=== PATIENT | female | born 1960 | race Caucasian/White ===

== ENCOUNTER 2025-02-18 09:05 | Outpatient (AMB) | payer OTHER, SELFPAY ==
--- NOTE | 2025-02-18 09:06 | MHC.OFFVIS ---
Intake Visit Reasons: 4 Months Allergies codeine Allergy (Unknown, Verified 02/18/25 09:08) Unknown latex Allergy (Unknown, Verified 02/18/25 09:08) Unknown sulfur dioxide Allergy (Unknown, Verified 02/18/25 09:08) Unknown Medication List - Last Reconciled 02/18/25 by Sherrell Alfredo CNP atorvastatin 10 mg PO BEDTIME beclomethasone dipropionate 80 mcg/actuation (Qvar RediHaler) 2 inhalations inhalation BID ipratropium bromide intranasal sertraline 25 mg PO DAILY verapamil 40 mg PO BID HPI Comments Details: 64-year-old woman with migraine type headaches and anxiety. She was having more migraines and auras lately. She was having visual auras without headache few times a week. She was getting bad migraine at least 3x/month. She was sometimes getting some parasethesia to scalp before headache happened. Headaches were more severe and lasting longer. She was using Benadryl and ibuprofen as needed which helped her to sleep as sleep was the only thing that helped to take away headache. She had to miss 1.5 days of work because of migraine recently. She was under more stress related to health and care of her mother with dementia and associated behaviors, which may be triggering headaches. She increased sertraline to 37.5mg which seems to be helping some. She did not think 25mg was sufficient and she felt more anxious and jittery with 50mg dose. [facility] Family History (Updated 02/18/25 @ 09:13 by Sherrell Alfredo CNP) Daughter Headache Mother Dementia Review of Systems Const Denies chills, Denies daytime sleepiness, Denies difficulty sleeping, Denies fatigue, Denies fever(s), Denies frequent falls, Reports headache(s), Denies increased appetite, Denies poor appetite, Denies snoring, Denies weakness, Denies weight gain and Denies weight loss Eyes Denies loss of vision ENT Denies vertigo, Denies dizziness and Reports headache(s) Card Denies chest pain at rest, Denies chest pain with activity, Denies syncope, Denies leg edema and Denies palpitations Resp Denies snoring GI Denies constipation, Denies heartburn, Denies diarrhea and Denies nausea Denies urinary frequency, Denies urinary incontinence and Denies urinary urgency Musc Denies abnormal gait, Denies numbness and Denies tingling Skin/Breast Denies dry skin and Denies rash Neuro Denies abnormal gait, Denies vertigo, Denies dizziness, Denies syncope, Denies frequent falls, Reports headache(s), Denies lack of coordination, Denies loss of vision, Denies memory loss, Denies numbness, Denies restless legs, Denies seizure-like activity, Denies tingling, Denies paresthesias, Denies tremor(s) and Denies weakness Psych Reports anxiety, Denies depression, Denies auditory hallucinations, Denies memory loss, Denies visual hallucinations and Denies suicidal ideation Endo Denies fatigue and Denies palpitations Physical Exam Const Other: General Appearance:? normal, in no acute distress. Skin:? no rashes, no significant birthmarks. Heart:? S1, S2 normal, no murmurs. Lungs:? clear anteriorly and posteriorly. Extremities:? no edema. Psych:? alert, oriented, cognitive function intact, cooperative with exam. Neuro Other: Mental Status:?Normal attention, orientation, memory and affect.? Cranial Nerves:?Pupils are equal, round and reactive to light. External occular muscles are intact. Visual cota are full. Face is symmetrical. Facial sensations are normal. Tongue is midline. Palate elevates symmetrically. Shoulder shrugging is normal. Hearing to bedside conversation is normal. Sensory Exam:?....? Coordination:?No ataxia,?no titubation.? Gait Exam: Within normal limits. Cerebellar Signs:?[id number] is okay. Extrapyramidal System:?No tremor, rigidity with normal facial expressions.? Pronator Drift:?Not present.? Involuntary Movements:?No tremors seen.? Speech:?Normal.? 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 Start rizatriptan 10mg 1 tablet as needed for migraine, use/side effects reviewed. (2) Migraine equivalent: Code(s): G43.109 - Migraine with aura, not intractable, without status migrainosus Category: Medical (3) Anxiety: Code(s): F41.9 - Anxiety disorder, unspecified Category: Medical Plan: She was taking sertraline 25mg 1.5 tablets without medication side effects. She tried sertraline 50mg in the past, but had side effects of increased anxiety and feeling too jittery. Will continue sertraline 37.5mg daily. Increase sertraline 25mg 1.5 tablet daily. (4) History of cerebral infarction: Code(s): Z86.73 - Personal history of transient ischemic attack (TIA), and cerebral infarction without residual deficits Category: Medical Plan Meds tried for migraine: Topiramate (worked but she did not want to take it), sumatriptan, butalbital Medications: New rizatriptan take 1 tab at onset of headache; if no relief may repeat 1 tab after at least 4 hrs; max = 2 tabs/24 hr PO 10 tabs 2RF 30 days sertraline 37.5 mg (1.5 x 25 mg) PO DAILY 135 tabs 1RF 90 days verapamil ER 120 mg PO DAILY 90 tabs 1RF 90 days Coding Level of Care Code Est Pt Level 4 (85132) Diagnoses Basilar migraine G43.109 Migraine equivalent G43.109 Anxiety F41.9 History of cerebral infarction Z86.73
--- OUTSIDE RECORDS SUMMARY | 2025-02-18 09:42 | XMS_ITS | Clinical Summary ---
Author Organization [facility] Address [address] [place] [address] Phone Care Team Providers Care Physician Extender Name Role Phone Erika Bustillos MD Primary Care Provider Allergies Active Allergy Reactions Criticality Noted Date Comments Caffeine 06/16/2023 Ringing in ears, can't top talking Codeine Other,Palpitations 02/22/2014 hyperactivity Latex Rash,Photosensitivity 03/09/2021 Oxycodone Other 09/07/2023 Chest tightness Sulfa (Sulfonamide Antibiotics) Rash 02/22/2014 Medications aspirin 81 mg EC tablet Take 81 mg by mouth daily. Active calcium carbonate-vitami n D3 600 mg-10 mcg (400 unit) capsule Take by mouth. Activ e coenzyme Q-10 100 mg capsule Take by mouth. Active KRILL OIL ORAL Activ e magnesium 250 mg tablet Take by mouth. Activ e multivitamin (MULTIPLE VITAMINS ORAL) Take 1 Tab by mouth daily. Active sertraline (ZOLOFT) 25 mg tablet Take 1 Tablet by mouth daily. - Oral Active verapamiL (CALAN) 40 mg tablet Take 1 Tablet by mouth 2 Times Daily. - Oral Active ipratropium (ATROVENT) 21 mcg (0.03 %) nasal spray USE 2 SPRAYS IN EACH NOSTRIL 3 TIMES A DAY 4 Active albuterol-budeso nide (AIRSUPRA) 90-80 mcg/actuation inhaler 4 Active beclomethasone dipropionate (Qvar RediHaler) 80 mcg/actuation HFA aerosol breath activated inhaler Inhale 2 puffs by mouth 2 (two) times a day. 1 each 6 4 025 Active Additional Information Patient not taking.Reported on 12/21/2024 beclomethasone dipropionate (Qvar RediHaler) 80 mcg/actuation HFA aerosol breath activated inhaler Inhale 2 puffs by mouth 2 (two) times a day. 3 each 3 5 026 Active Additional Information Patient not taking.Reported on 12/21/2024 sodium,potassium ,mag sulfates (Suprep Bowel Prep Kit) 17.5-3.13-1.6 gram recon soln bowel prep kit oral solution Take 177ML by mouth for 2 doses. SEE INSTRUCTIONS PROVIDED BY OFFICE. 1 kit 5 Active Additional Information Patient not taking.Reported on 12/21/2024 omega 7-hbw-rkc-fish oil (Fish OiL) 1,000 (120-180) mg capsule Active atorvastatin (LIPITOR) 10 mg tablet TAKE 1 TABLET BY MOUTH EVERYDAY AT BEDTIME 90 tablet 1 5 Active Active Problems Problem Noted Date Diagnosed Date CVA (cerebral vascular accident) ([facility] V24, C [place]/[facility] V28) 08/31/2024 Laryngospasm 08/31/2024 Anxiety 08/21/2024 H/O congenital dislocation of hip 06/21/2024 Heterogeneously dense tissue of both breasts on mammography 06/15/2024 Mass of right breast 06/15/2024 Osteoarthritis of hip 06/15/2024 Osteopenia of multiple sites 06/15/2024 Overweight for height 06/15/2024 Chronic hoarseness 04/04/2024 Chronic rhinitis 04/04/2024 Gastroesophageal reflux disease without esophagi tis 04/04/2024 Nasal congestion 04/04/2024 Hemoptysis 03/09/2024 Bilateral swelling of feet 03/01/2024 Chronic cough 03/01/2024 Obesity (BMI 30-39.9) 03/01/2024 Pleural scarring 03/01/2024 Overview (06/21/2024): Last Assessment & Plan: Had a long discussion with her and her about the findings on her CT scan which really just showed some bilateral apical pleural scarring which is as explained to her quite common. I also explained to her that there is no findings on the CT scan that would explain her symptoms of cough, weakness, and shortness of breath. We also discussed the possibility of there being some inhaled irritant that she thinks may be from her work. I did also discuss with her possibility that reflux can cause symptoms like that but her symptoms seem to correlate with her time at work as the hoarseness gets better after a few hours after leaving work. She also has had no symptoms when she was on vacation. I do not think there is anything I can add in terms of diagnosis except that she could try taking [id number] Pepcid on a daily basis and see if that improves her symptoms. She also tells me that she is seeing gastroenterology in 2 weeks. All questions were answered and she can follow-up with me on an as- needed basis moving forward. Weakness 03/01/2024 Migraine headache 02/21/2024 Known medical problems 02/21/2024 TIA (transient ischemic attack) 02/21/2024 Heartburn 12/25/2023 Overview (06/21/2024): Burning at top of stomach Chronic maxillary sinusitis 02/08/2023 Overview (12/21/2024): Chronic maxillary sinusitis; Note: Date Diagnosed: 02/08/2023 2:47 PM (J32.0) Migraine without aura, not refractory 02/08/2023 Overview (12/21/2024): Migraine without aura, not intractable, without status migrainosus; Note: Date Diagnosed: 02/08/2023 2:47 PM (G43.009) Deviated nasal septum 07/08/2020 Overview (12/21/2024): Deflection or deviation of septum (nasal) (acquired); Note: Date Diagnosed: 07/08/2020 1:25 PM (J34.2) Epistaxis 07/08/2020 Overview (12/21/2024): Epistaxis; Note: Date Diagnosed: 07/08/2020 1:25 PM (R04.0) Hyperlipidemia 01/27/2016 Overview (02/21/2024): Total cholesterol 204, LDL cholesterol 119, 09/03/2015 Arthralgia of temporomandibular joint 05/28/2015 Overview (12/21/2024): Arthralgia of temporomandibular joint; Note: Date Diagnosed: 05/28/2015 9:05 AM (M26.62) Impacted cerumen of left ear 05/28/2015 Overview (12/21/2024): Impacted cerumen, left ear; Note: Date Diagnosed: 05/28/2015 9:05 AM (H61.22) Vitamin D deficiency 05/31/2014 Hematuria 05/22/2013 Resolved Problems Problem Noted Date Diagnosed Date Resolved Date Palpitations 12/30/2022 12/21/2024 Overview (02/21/2024): December 2022: Normal Holter monitor Encounters Date Type Department Care Team Description 12/21/2024 2:00 PM EDT Office Visit Pulmonology - [place] [address] [facility] [address] [place] [address] Landy Sinclair MD Cough variant asthma (Primary Dx); Chronic bronchitis, unspecified chronic bronchitis type ([facility] V24, [facility] V28) 12/11/2024 Telephone [facility] [address] [place] [address] Erika Bustillos MD from Last 3 Months Immunizations Immunization Administration Dates Next Due Influenza Quadrivalent, 0.5m l, preservative free (Fluarix; FluLaval; Fluzone) ages 6mo and older (Afluria) 3yo and older 04/14/2018 Influenza Whole 02/27/2015 Influenza trivalent, 0.5mL, preservative free (Fluarix; FluLaval; Fluzone) ages 6mo and older (Afluria) 3 years and older 03/09/2017,02/12/2016,02/25/2015 Influenza trivalent, with pr eservative (Fluzone; Afluria) 6mo and older 04/14/2018 [employer] SARS-CoV-2 COVID-19, mRNA, LNP-S, preservative free 09/13/2020,08/23/2020 Tdap Tetanus diptheria acell ular pertussis (Boostrix; Adacel) 7yo and older 02/04/2023 Surgical History Surgery Date Site/Laterality Comments TUBAL LIGATION PROCEDURE: HISTORICAL TUBAL LIGATION COLONOSCOPY 05/23/2014 PROCEDURE: HISTORICAL COLONOSCOPY; COMMENT: normal OTHER SURGICAL HISTORY Bilateral PROCEDURE: [place] STAB PHLEBT VARICOSE VEINS 1 XTR 10-20 STAB INCS HIP ARTHROPLASTY Left PROCEDURE: HISTORICAL HIP REPLACEMENT KNEE SURGERY Right PROCEDURE: HISTORICAL KNEE SURGERY; COMMENT: torn meniscus Medical History Medical History Date Comments Migraines DX:Migraines H/O congenital dislocation of hip DX:H/O congenital dislocation of hip Varicose veins DX:Varicose vein s TIA (transient ischemic attack) DX:TIA (transient ischemic attack) GERD (gastroesophageal reflux disease) Family History Medical History Relation Name Comments Bladder Cancer Brother Prostate cancer Brother Heart attack Father of [place] whil e driving in 50s Dementia Mother Other: Other Mother Osteoporosis Breast cancer Sister 52 Relation Name Status Comments Brother Alive prostate cancer Father (Age early 50's) [place] , CAD, CABG Mother Alive multiple GI pro blems Sister 52 Alive Social History Tobacco Use Types Packs/Day Years Used Date Smoking Tobacco: Never Smokeless Tobacco: Never Tobacco Cessation:Counseling Given: Not Answered Alcohol Use Standard Drinks/Week Comments Yes 0 (1 standard drink = 0.6 oz pur e alcohol) Housing Instability Answer Date Recorde d Are you worried that in the next 2 months you may not have stable housing? No 08/17/2024 Food Access & Nutrition Answer Date Rec orded Do you have access to a vari ety of food including fruits and vegetables? Yes 08/17/2024 Access to Healthcare Answer Date Record ed Within the last 3 months, ho w many times did you visit the emergency department for your medical care? 0 08/17/2024 Health Literacy Answer Date Recorded How often do you need to hav e someone help you when you read instructions, pamphlets, or other written material from your doctor or pharmacy? Never 08/17/2024 Caregiver: How often do you need to have someone help you when you read instructions, pamphlets, or other written material from your doctor or pharmacy? Not on file 08/17/2024 Financial Risk Answer Date Recorded How hard is it for you to pa y for the very basics like food, housing, medical care, and air conditioning / heating? Not very hard 08/17/2024 Transportation Answer Date Recorded Has the lack of transportati on kept you from meetings, work, or from getting things needed for daily living? No Has the lack of transportati on kept you from medical appointments or from getting medications? No 08/17/2024 Social Isolation Answer Date Recorded How often do you feel lonely or isolated from th ose around you? Never 08/17/2024 Food Risk Answer Date Recorded Within the past 12 months we worried whether our food would run out before we got money to buy more. Never true 08/17/2024 Within the past 12 months th e food we bought just didn't last and we didn't have money to get more. Never true 08/17/2024 Dependent Care Answer Date Recorded Do you need help finding or paying for care for your loved ones. For example, exceptional children teacher or elderly care for an older adult? Yes 08/17/2024 Education Answer Date Recorded Do you think completing more education or training, like finishing a GED, going to college, or learning a trade, would be helpful for you? N/A 08/17/2024 Employment and Income Answer Date Recor ded During the last four weeks, have you been actively looking for work? No 08/17/2024 Living Situation Answer Date Recorded What is your living situation? Unrecognized valu e 08/17/2024 Interpersonal Safety Answer Date Record ed Physical Abuse Unrecognized value 08/31/2024 Verbal Abuse Unrecognized value 08/31/2024 Comments No Sex and Gender Information Value Date Recorded Sex Assigned at Female 03/20/2024 12:40 PM EDT Legal Sex Female 9:04 AM EST Gender Identity Female 03/20/2024 12:40 PM EDT Sexual Orientation Straight 03/20/2024 12 :40 PM EDT Obstetrics History Para Term AB IAB SAB Ectopic Multiple Livin g Live Births 2 2 2 2 Date Outcome GA Total Labor Labor/2nd/3rd Weight Sex Type Anes PTL Juana A1 A5 Name Clin Term Term Last Filed Vital Signs Vital Sign Reading Time Taken Comments Blood Pressure 119/66 12/21/2024 2:01 PM EDT Pulse 79 12/21/2024 2:01 PM EDT Temperature 36.7 C (98 F) 12/21/2024 2:01 PM EDT Respiratory Rate 20 12/21/2024 2:01 PM EDT Oxygen Saturation 98% 12/21/2024 2:01 PM EDT Inhaled Oxygen Concentration - - Weight 65.1 kg (143 lb 9.6 oz) 12/21/2024 2:01 P M EDT Height 148.6 cm (4' 10.5 ) 12/21/2024 2:01 PM ED T Body Mass Index 29.5 12/21/2024 2:01 PM EDT Plan of Treatment Upcoming Encounters Date Type Department Care Team (Late st Contact Info) Description 03/21/2025 7:00 AM EDT Ancillary Procedure [facility] - [facility] [address] [facility] [address] [place] [address] 04/24/2025 7:40 AM EST Appointment Radiology Department - [address] [phone] 04/24/2025 1:30 PM EST Office Visit Vascular Surgery - [place] [address] [facility] [address] [place] [address] Malinda Khan PA [address] [place] [phone] 08/23/2025 8:00 AM EDT Office Visit Adult Medicine [address] [address] Eriak Bustillos MD [address] [place] [phone] 12/17/2025 10:15 AM EDT Ancillary Procedure Pulmonology - [place] [address] [facility] [address] [place] [address] 12/17/2025 11:00 AM EDT Office Visit Pulmonology - [place] [address] [facility] [address] [place] [phone] Landy Sinclair MD [address] [facility] [address] [place] [address] Health Maintenance Due Date Last Done Comments COVID-19 Vaccine (3 - 2024- season) 2025 09/13/2020, 08/23/2020 Influenza Vaccine (#1) 2025 8, 04/14/2018, 03/09/2017, Additional history exists HIV Screening 05/23/2025 Postponed from 05/01/2022 (Patient Refused) Pneumococcal Vaccine: 50+ Years (1 of 2 - PCV) 05/23/2025 Postponed from 1979 (Patient Refused) RSV Immunization Adult Patients (1 - Risk 60-74 years 1-dose series) 05/23/2025 Postponed from 2020 (Patient Refused) Zoster Vaccines (1 of 2) 05/23/2025 Pos tponed from 2010 (Patient Refused) Social Influencers of Health Screening 08/17/2025 08/17/2024 Breast Cancer Screening 04/23/2026 04/23/20, 04/11/2024, 04/06/2023, Additional history exists Colorectal Cancer Screening: Colonoscopy 09/01/2027 08/31/2024 Cervical Cancer Screening: HPV 06/15/2029 06/15/2024 Cholesterol Screening (Lipid Panel) 08/22/2029 08/22/2024, 08/16/2023 DTaP,Tdap,and Td Vaccines (2 - Td or Tdap) 02/04/2033 02/04/2023 Hepatitis C Screening Completed 03/14/2014 Depression Screening Completed 08/17/2024 HIB Vaccines Aged Out No longer eligi ble based on patient's age to complete this topic HPV Vaccines Aged Out No longer eligi ble based on patient's age to complete this topic Hepatitis A Vaccines Aged Out No long er eligible based on patient's age to complete this topic Hepatitis B Vaccines Aged Out No long er eligible based on patient's age to complete this topic IPV Vaccines Aged Out No longer eligi ble based on patient's age to complete this topic MMR Vaccines Aged Out No longer eligi ble based on patient's age to complete this topic Meningococcal ACWY Vaccine Aged Out N o longer eligible based on patient's age to complete this topic Meningococcal B Vaccine Aged Out No l onger eligible based on patient's age to complete this topic RSV Immunization Patients Under 20 months Aged Out No longer eligible based on patient's age to complete this topic Varicella Vaccines Aged Out No longer eligible based on patient's age to complete this topic Procedures Procedure Name Priority Date/Time Associated Diagnosis Comments COLONOSCOPY Routine 08/31/2024 8:14 AM EDT Esophageal dysphagia Screening for colorectal cancer LIPID PANEL WITH REFLEX TO DIRECT LDL Routine 08/22/2024 10:43 AM EDT Annual physical exam MG MAMMO DIGITAL DIAGNOSTIC W PAULETTE RIGHT Routine 04/23/2024 2:32 PM EST Abnormal mammogram HM HEPATITIS C SCREENING Routine 03/14/2014 from Last 3 Months or Most Recently Relevant to Health Maintenance Results * COLONOSCOPY Anesthesia - MAC; [facility] (08/31/2024 8:14 AM EDT) Anatomical Region Laterality Modality Endoscopy 08/31/2024 7:31 AM EDT Impressions 08/31/2024 8:15 AM EDT - Hemorrhoids found on perianal exam. - Rectal prolapse. - One 11 mm polyp in the ascending colon, removed with a cold snare. Resected and retrieved. - The examination was otherwise normal on direct and retroflexion views. Recommendation: - - Discharge patient to home. - High fiber diet. - Continue present medications. - Await pathology results. - Repeat colonoscopy for surveillance based on pathology results. Narrative 08/31/2024 8:15 AM EDT [facility] Patient Name: Cristela Lewis Procedure Date: 08/31/2024 7:31 AM Date of : 1960 Age: 64 Gender: Female Note Status: Finalized Attending MD: Lori Castro DO, [id number] Procedure Date No Time: 08/31/2024 Procedure: Colonoscopy Indications: Screening for colorectal malignant neoplasm Providers: Lori Castro DO Referring MD: Erika Bustillos MD Medicines: Monitored Anesthesia Care Complications: No immediate complications. Estimated blood loss: Minimal. Estimated Blood Loss: Estimated blood loss was minimal. Procedure: Pre-Anesthesia Assessment: - - Prior to the procedure, a History and Physical was performed, and patient medications and allergies were reviewed. The patient is competent. The risks and benefits of the procedure and the sedation options and risks were discussed with the patient. All questions were answered and informed consent was obtained. Patient identification and proposed procedure were verified by the physician, the nurse, the anesthesiologist, the tester food products and the service center technician in the pre-procedure area in the endoscopy suite. Mental Status Examination: alert and oriented. Airway Examination: normal oropharyngeal airway and neck mobility. Respiratory Examination: clear to auscultation. CV Examination: normal. Prophylactic Antibiotics: The patient does not require prophylactic antibiotics. Prior Anticoagulants: The patient has taken no anticoagulant or antiplatelet agents. ASA Grade Assessment: II - A patient with severe systemic disease. After reviewing the risks and benefits, the patient was deemed in satisfactory condition to undergo the procedure. The anesthesia plan was to use monitored anesthesia care (MAC). Immediately prior to administration of medications, the patient was re-assessed for adequacy to receive sedatives. The heart rate, respiratory rate, oxygen saturations, blood pressure, adequacy of pulmonary ventilation, and response to care were monitored throughout the procedure. The physical status of the patient was re-assessed after the procedure. After I obtained informed consent, the scope was passed under direct vision. Throughout the procedure, the patient's blood pressure, pulse, and oxygen saturations were monitored continuously.The Colonoscope was introduced through the anus and advanced to the cecum, identified by appendiceal orifice and ileocecal valve. The colonoscopy was performed without difficulty. The patient tolerated the procedure well. Findings: Hemorrhoids were found on perianal exam. Mild rectal prolapse was present. An 11 mm polyp was found in the ascending colon. The polyp was sessile. The polyp was removed with a cold snare. Resection and retrieval were complete. Verification of patient identification for the specimen was done. Estimated blood loss was minimal. The exam was otherwise without abnormality on direct and retroflexion views. Procedure Code(s): --- Professional --- 16268, Colonoscopy, flexible; with removal of tumor(s), polyp(s), or other lesion(s) by snare technique Diagnosis Code(s): --- Professional --- Z12.11, Encounter for screening for malignant neoplasm of colon K64.9, Unspecified hemorrhoids K62.3, Rectal prolapse D12.2, Benign neoplasm of ascending colon CPT copyright 2020 [employer]. All rights reserved. The codes documented in this report are preliminary and upon body welder review may be revised to meet current compliance requirements. LORI Castro DO 08/31/2024 8:15:19 AM This report has been signed electronically.Lori Castro DO Number of Addenda: 0 Note Initiated On: 08/31/2024 7:31 AM Scope Withdrawal Time: 0 hours 8 minutes 2 seconds Scope In: 8:02:00 AM Scope Out: 8:12:10 AM Endoscopy Department at [facility] - [address] [place] [phone] Procedure Note Lori Castro DO - 08/31/2024 [facility] Patient Name: Cristela Lewis Procedure Date: 08/31/2024 7:31 AM Date of : 1960 Age: 64 Gender: Female Note Status: Finalized Attending MD: Lori Castro DO, [id number] Procedure Date No Time: 08/31/2024 Procedure: Colonoscopy Indications: Screening for colorectal malignant neoplasm Providers: Lori Castro DO Referring MD: Erika Bustillos MD Medicines: Monitored Anesthesia Care Complications: No immediate complications. Estimated blood loss: Minimal. Estimated Blood Loss: Estimated blood loss was minimal. Procedure: Pre-Anesthesia Assessment: - - Prior to the procedure, a History and Physicalwas performed, and patient medications and allergieswere reviewed. The patient is competent. The risks and benefits of the procedure and the sedation optionsand risks were discussed with the patient. Allquestions were answered and informed consent was obtained. Patient identification and proposed procedure were verified by the physician, the nurse, the anesthesiologist, the tester food products and thetechnician in the pre-procedure area in the endoscopy suite. Mental Status Examination: alert and oriented.Airway Examination: normal oropharyngeal airway and neck mobility. Respiratory Examination: clear to auscultation. CV Examination: normal. Prophylactic Antibiotics: The patient does not requireprophylactic antibiotics. Prior Anticoagulants: The patient has taken no anticoagulant or antiplatelet agents. ASA Grade Assessment: II - A patient with severesystemic disease. After reviewing the risks and benefits,the patient was deemed in satisfactory condition to undergo the procedure. The anesthesia plan was touse monitored anesthesia care (MAC). Immediately priorto administration of medications, the patient was re-assessed for adequacy to receive sedatives. The heart rate, respiratory rate, oxygen saturations, blood pressure, adequacy of pulmonary ventilation,and response to care were monitored throughout the procedure. The physical status of the patient was re-assessed after the procedure. After I obtained informed consent, the scope was passed under direct vision. Throughout theprocedure, the patient's blood pressure, pulse, and oxygen saturations were monitored continuously.The Colonoscope was introduced through the anus and advanced to the cecum, identified by appendiceal orifice and ileocecal valve. The colonoscopy was performed without difficulty. The patient tolerated the procedure well. Findings: Hemorrhoids were found on perianal exam. Mild rectal prolapse was present. An 11 mm polyp was found in the ascending colon.The polyp was sessile. The polyp was removed with acold snare. Resection and retrieval were complete. Verification of patient identification for the specimen was done. Estimated blood loss wasminimal. The exam was otherwise without abnormality ondirect and retroflexion views. Procedure Code(s): --- Professional --- 40338, Colonoscopy, flexible; with removal of tumor(s), polyp(s), or other lesion(s) by snare technique Diagnosis Code(s): --- Professional --- Z12.11, Encounter for screening for malignantneoplasm of colon K64.9, Unspecified hemorrhoids K62.3, Rectal prolapse D12.2, Benign neoplasm of ascending colon CPT copyright 2020 [employer]. All rights reserved. The codes documented in this report are preliminary and upon body welder reviewmay be revised to meet current compliance requirements. LORI Castro DO 08/31/2024 8:15:19 AM This report has been signed electronically.Lori Castro DO Number of Addenda: 0 Note Initiated On: 08/31/2024 7:31 AM Scope Withdrawal Time: 0 hours 8 minutes 2 seconds Scope In: 8:02:00 AM Scope Out: 8:12:10 AM Endoscopy Department at [facility] - [address] [place] [phone] IMPRESSION: - Hemorrhoids found on perianal exam. - Rectal prolapse. - One 11 mm polyp in the ascending colon, removedwith a cold snare. Resected and retrieved. - The examination was otherwise normal on directand retroflexion views. Recommendation: - - Discharge patient to home. - High fiber diet. - Continue present medications. - Await pathology results. - Repeat colonoscopy for surveillance based on pathology results. us Lori Castro DO GI~PROCEDURE ORDERABLES Final Re sult * Lipid panel with reflex to direct LDL (08/22/2024 10:43 AM EDT) Cholesterol 171 0 - 200 mg/dL LAB CHEMISTRY METHOD 08/22/2024 7:58 PM EDT [facility] Triglycerides 102 0 - 150 mg/dL LAB CHEMISTRY METHOD 08/22/2024 7:58 PM EDT [facility] HDL 64 >=40 mg/dL LAB CHEMISTRY METHOD 08/22/2024 7:58 PM EDT [facility] LDL Calculated 87 0 - 100 mg/dL LAB CHEMISTRY METHOD 08/22/2024 7:58 PM T [facility] VLDL Cholesterol Matthew 20.4 mg/dL LAB CHEMISTRY METHOD 08/22/2024 7:58 PM EDT [facility] Non HDL Chol. (LDL+VLDL) 107 <145 mg/dL LAB CHEMISTRY METHOD 08/22/2024 7:58 PM EDT [facility] Chol/HDL Ratio 2.7 0.0 - 4.4 LAB CHEMISTRY METHOD 08/22/2024 7:58 PM [facility] Blood Venous blood specimen / Unknown Venipuncture / Unknown 08/22/2024 10:43 AM EDT 08/22/2024 10:43 AM EDT us Erika Bustillos MD LAB BLOOD ORDERABLES Final Result [facility] [address] [place] [address], * MG Mammo Digital Diagnostic w Paulette Right (04/23/2024 2:32 PM EST) Anatomical Region Laterality Modality Breast Right Mammography 04/23/2024 2:33 PM EST Impressions 04/23/2024 2:59 PM EST No mammographic evidence of malignancy. Benign septated cystic lesion medial right breast corresponding to the mammographic finding. BI-RADS: 2-Benign RECOMMENDATION(S): 1: Routine screening mammogram BILATERAL in 1 year. Mammo Location: [facility], [address] [place] [address], [id number], . -------- FINAL REPORT -------- Dictated By: Shona Lemons Dictated Date: 04/23/2024 14:33 ET Assigned Physician: Shona Lemons Reviewed and Electronically Signed By: Shona Lemons Signed Date: 04/23/2024 14:59 ET Workstation ID: [id number] Transcribed By: Self Edit Transcribed Date: 04/23/2024 14:40 ET Narrative 04/23/2024 2:59 PM EST EXAM: MG MAMMO DIGITAL DIAGNOSTIC W PAULETTE RIGHT; RIGHT BREAST ULTRASOUND EXAM DATE: 04/23/2024 2:20 PM HISTORY: Small partially circumscribed lesion lower inner right breast. COMPARISON: Mammogram 04/11/2024. TECHNIQUE: Full field mediolateral, spot compression CC, spot compression MLO views of the right breast utilizing Tomosynthesis. Computer aided detection with Etece 3D 3.1 was employed for the medial lateral view. TISSUE DENSITY: c. The breasts are heterogeneously dense. FINDINGS: Focal asymmetry in the medial right breast is a persistent finding on the spot compression cc and spot compression MLO views. This is not identified with certainty on the MLO view. Ultrasound evaluation of the medial right breast was performed. Portions of the medial lower and medial upper quadrants were examined. There is a 4 mm x 2 x 4 complex septated cystic lesion at the 3 to 4 o'clock position 4 cm from the nipple, consistent with apocrine metaplasia. Procedure Note Shona Lemons MD - 04/23/2024 EXAM: MG MAMMO DIGITAL DIAGNOSTIC W PAULETTE RIGHT; RIGHT BREAST ULTRASOUND EXAM DATE: 04/23/2024 2:20 PM HISTORY: Small partially circumscribed lesion lower inner right breast. COMPARISON: Mammogram 04/11/2024. TECHNIQUE: Full field mediolateral, spot compression CC, spot compressionMLO views of the right breast utilizing Tomosynthesis. Computer aideddetection with Etece 3D 3.1 was employed for the medial lateralview. TISSUE DENSITY: c. The breasts are heterogeneously dense. FINDINGS: Focal asymmetry in the medial right breast is a persistent finding on thespot compression cc and spot compression MLO views. This is notidentified with certainty on the MLO view. Ultrasound evaluation of the medial right breast was performed. Portionsof the medial lower and medial upper quadrants were examined. There is a 4 mm x 2 x 4 complex septated cystic lesion at the 3 to 4o'clock position 4 cm from the nipple, consistent with apocrinemetaplasia. IMPRESSION: No mammographic evidence of malignancy. Benign septated cystic lesionmedial right breast corresponding to the mammographic finding. BI-RADS: 2-Benign RECOMMENDATION(S): 1: Routine screening mammogram BILATERAL in 1 year. Mammo Location: [facility], [address] [place] [address], [address], . -------- FINAL REPORT -------- Dictated By: Shona Lemons Dictated Date: 04/23/2024 14:33 ET Assigned Physician: Shona Lemons Reviewed and Electronically Signed By: Shona Lemons Signed Date: 04/23/2024 14:59 ET Workstation ID: [id number] Transcribed By: Self Edit Transcribed Date: 04/23/2024 14:40 ET us Erika Bustillos MD IMG BI PROCEDURES Final Res ult * Hm Hepatitis C Screening (03/14/2014) Hepatitis C Screening abstracted us Historical Provider HEALTH MAINTENANCE Final Result from Last 3 Months or Most Recently Relevant to Health Maintenance Insurance i3 membrane [employer] [facility] Care Teams Physician Extender Relationship Specialty Start Date End Date Erika Bustillos MD [address] [place] [address] PCP - General 02/17/23
--- OUTSIDE RECORDS SUMMARY | 2025-02-18 09:42 | XMS_ITS | Data Portability ---
Author Organization [place] - [facility], Allergy Address [address] [address] Care Team Providers Care Line Construction Superintendent Name Role Phone SEAN AYALA Primary Care Provider [phone] Assessment Encounter Date Assessment Date Assessment LastModified by Organization Details LastModified Time 04/04/2024 04/04/2024 Hx of shortness of breath, low oxygen at night, recent eval for abnormal lung imaging, she feels fatigued and has low energy. She saw Dr. Pj ribeiro over a year ago for bilateral maxillary retention cysts which were noted on MRI scan for headache. She did not feel that those were the cause of any breathing difficulty. Patient notes when she lies down on her right side the left side is obstructed. She is concerned that that is causing her to be fatigued and not have enough oxygen. She also notes epigastric discomfort and possible GERD. had COVID in Apr 2023, pneumonia in May 2023 and November 2023 Chronic dialy hoarseness and SOB with sitting or even mild movements. At other times she feels breathing is fine She gets minimal improvement with Nasacort We reviewed her MRI scan from November 2022 showing maxillary retention cysts right greater than left and rightward septal deviation. We discussed that fiberoptic evaluation shows no masses or polyps. There is erythema and edema of her true vocal folds which might be related to reflux and her issues with cough. I have suggested a trial of Atrovent nasal spray to see if that will help open up her nose. I do not feel that the nose is the cause of her fatigue and low energy. She should be able to breathe better at night with her right side down. The reflux may be contributing to her hoarseness and the laryngeal irritation I have suggested a trial of reflux Gourmet or reflux raft after meals and at bedtime maureen Not available 04/04/2024 14:57:31 Plan of Treatment Reminders Order Date Submit Date Provider Last Modified By Organization Details Last Modified Time Details Appointments None recorded. Lab None recorded. Referral None recorded. Procedures None recorded. Surgeries None recorded. Imaging None recorded. Medication Orders ipratropium bromide 21 mcg (0.03 %) nasal spray [address] [id number], [address] [place], [address], 14:59:30 Patient TargetsNo targets recorded. Patient Instructions Encounter Date Encounter Id Patient Instructions Last Modified By Organization Details Last Modified Time 07/20/2024 [id number] Patient with chronic intermittent hoarseness, nasal obstruction and reflux. She has had some irritation of the right side of her nose and there is minimal crusting. She will try to hold off on the Atrovent and especially use it with the opposite hand technique. She can use saline solution 3-4 times daily and K-Y jelly in the nose at night. Fortunately her larynx does not have any lesions. Her hoarseness is likely due to a combination of reflux and vocal hyperfunction. She will follow-up with gastroenterology in August as planned. Contact me as needed maureen Not available 07/20/2024 11:03:28 Reason for Referral None Reported. Problems Name Problem SNOMED Code Status Onset Date Resolution Date Notes Provider Name and Address Organization Details Recorded Time Pain of temporoma ndibular joint 64045315 Active 2015 Arthralgi a of temporoma ndibular joint; Note: Date Diagnosed : 05/28/2015 9:05 AM (M26.62) Not Available [facility] 4 03:21:19 Impacted cerumen in left ear 11417172532 87435 Active 2015 Impacted cerumen, left ear; Note: Date Diagnosed : 05/28/2015 9:05 AM (H61.22) Not Available [facility] 4 03:21:18 Deviated nasal septum 615360797 Active 2020 Deflectio n or deviation of septum (nasal) (acquired ); Note: Date Diagnosed : 07/08/2020 1:25 PM (J34.2) Not Available [facility] 4 03:21:19 Bleeding from nose 135740902 Active 2020 Epistaxis ; Note: Date Diagnosed : 07/08/2020 1:25 PM (R04.0) Not Available [facility] 4 03:21:19 Chronic maxillary sinusitis 05824991 Active 2022 Chronic maxillary sinusitis ; Note: Date Diagnosed : 02/08/2023 2:47 PM (J32.0) Not Available [facility] 4 03:21:19 Migraine without aura, not refractor y 188894540 Active 2022 Migraine without aura, not intractab le, without status migrainos ; Note: Date Diagnosed : 02/08/2023 2:47 PM (G43.009) Not Available [facility] 4 03:21:18 Chronic hoarsenes s 24595732645 05 Active 2023 LINDA POLANCO MD [address] [facility] [place], [place], [address] , [place] - [facility] 4 14:58:35 Gastroeso phageal reflux disease without esophagit is 419155028 Active 2023 LINDA POLANCO MD [address] [facility] [place], [place], [address] , [place] - [facility] [place] 4 14:58:41 Nasal congestio n 53246049 Active 2023 LINDA POLANCO MD [address], [place], [address] , [place] - [facility] [place] 4 14:58:51 Chronic rhinitis 52338184 Active 2023 LINDA POLANCO MD [address], [place], [address] , [place] - [facility] 4 14:59:09 Problem Notes None recorded. Procedures Surgical History Date Name Laterality Status Provider Name and Address Organization Details Recorded Time 07/20/2024 FOL_Reflux _JMS completed LINDA ABRAMS MD [address], [address], [place] [facility] 07/20/2024 11:04:14 04/04/2024 FOL_Reflux _JMS completed LINDA ABRAMS MD [address], [address], [place] [facility] 04/04/2024 14:58:08 Imaging Results None recorded. Procedure Notes None recorded. Medical Equipment None Reported. Allergies Allergen ID Allergen Name Allergen Category Reaction Reaction Severity Criticality Documentation Date Start Date Code Code System Note Provider Name and Address Organization Details Recorded Time 664769 codeine sulfate medicatio n other Not available Not available 10/04/2023 53470 RxNorm React ion: unkno wn, unspe cifie d;; Not Available [facility] 4 01:26:05 952338 Substance with sulfonami de structure and antibacte rial mechanism of action (substanc e) medicatio n other Not available Not available 10/04/2023 48772 8003 SNOMED React ion: unkno wn, unspe cifie d;; Not Available [facility] 4 01:26:06 805522 latex environme nt,medica tion Not available Not available Not available 04/04/2024 73649 91 RxNorm Beni g[place] [facility] 4 14:32:38 423592 caffeine food,medi cation Not available Not available Not available 04/04/2024 1886 RxNorm Beni garcia [facility] 4 14:32:46 Medications Name Sig Start Date Stop Date Status Note LastModified by Organization Details LastModified Time verapamil 40 mg tablet TAKE 1 TABLET BY MOUTH TWICE A DAY FOR 90 DAYS active Not Available Not Available No t Available atorvasta tin 10 mg tablet TAKE 1 TABLET BY MOUTH EVERYDAY AT BEDTIME active Not Available Not Available No t Available azithromy ivory 250 mg tablet TAKE 2 TABLETS BY MOUTH TODAY, THEN TAKE 1 TABLET DAILY FOR 4 DAYS DIRECTED 04/04 completed Not Available Not Available Not Available prednison e 20 mg tablet TAKE 3 TABLETS BY MOUTH EVERY DAY FOR 3 DAYS THEN DECREASE BY 1 TABLET EVERY 3 DAYS 04/04 completed Not Available Not Available Not Available sumatript an 50 mg tablet TAKE 1 TABLET BY MOUTH ONCE DAILY, AT LEAST 2 HOURS BETWEEN DOSES NEEDED 04/04 completed Not Available Not Available Not Available topiramat e 25 mg tablet TAKE 1 TABLET BY MOUTH EVERY DAY 04/04 completed Not Available Not Available Not Available doxycycli ne monohydra te 100 mg tablet TAKE 1 TABLET BY MOUTH TWICE A DAY FOR 10 DAYS 04/04 completed Not Available Not Available Not Available tramadol 50 mg tablet 04/04 completed Medicati on ID: [id number] B rand Name: tramadol Send Method: E-Prescr ibed Sub s Allowed: subs OK Medic ationGen ericName : tramadol Not Available Not Available Not Available benzonata te 100 mg capsule TAKE 1 CAPSULE BY MOUTH 3 TIMES DAILY NEEDED FOR COUGH FOR UP TO 14 DAYS. 04/04 completed Not Available Not Available Not Available oseltamiv ir 75 mg capsule TAKE 1 CAPSULE BY MOUTH EVERY 12 HOURS FOR 5 DAYS 04/04 completed Not Available Not Available Not Available sertralin e 25 mg tablet TAKE 1 TABLET BY MOUTH EVERY DAY 07/05 completed Not Available Not Available Not Available verapamil ER (PM) 100 mg capsule 24hr pellet CT,ext.re lease active Medicati on ID: [id number] B rand Name: verapami l Send Method: E-Prescr ibed Sub s Allowed: subs OK Medic ationGen ericName : verapami l Not Available Not Available Not Available albuterol sulfate HFA 90 mcg/actua tion aerosol inhaler PLEASE SEE ATTACHED FOR DETAILED DIRECTIO NS active Not Available Not Available No t Available sertralin e 50 mg tablet TAKE 1 TABLET BY MOUTH EVERY DAY active Not Available Not Available No t Available ipratropi um bromide 21 mcg (0.03 %) nasal spray USE 2 SPRAYS IN EACH NOSTRIL 3 TIMES A DAY 2024 active Not Available Not Available Not Avai lable naproxen 500 mg tablet 04/04 completed Medicati on ID: [id number] B rand Name: naproxen Send Method: E-Prescr ibed Sub s Allowed: subs OK Medic ationGen ericName : naproxen Not Available Not Available Not Available verapamil ER 120 mg 24 hr capsule,e xtended release 02/08 completed Medicati on ID: [id number] D uration Value: 30 Brand Name: verapami l Send Method: E-Prescr ibed Sub s Allowed: subs OK Speci al Instruct ion: TAKE ONE CAPSULE BY MOUTH DAILY Me dication GenericN adama: verapami l Not Available Not Available Not Available cholecalc iferol (vitamin D3) 25 mcg (1,000 unit) capsule 02/08 completed Medicati on ID: [id number] D uration Value: 90 Brand Name: cholecal ciferol (vitamin D3) Send Method: E-Prescr ibed Sub s Allowed: subs OK Speci al Instruct ion: TAKE ONE CAPSULE EVERY DAY Medi cationGe nericNam e: cholecal ciferol (vitamin D3) Not Available Not Available Not Available aspirin 02/08 completed Medicati on ID: [id number] B rand Name: Aspirin Send Method: E-Prescr ibed Sub s Allowed: subs OK Medic ationGen ericName : Aspirin Not Available Not Available Not Available OptiChamb er [facility] spacer USE YOUR ALBUTERO L INHALER. active Not Available Not Available No t Available fluticaso ne furoate 100 mcg-vilan terol 25 mcg/dose inhalatio n powder TAKE 1 PUFF BY MOUTH EVERY DAY 07/20 completed Not Available Not Available Not Available Qvar RediHaler 80 mcg/actua tion HFA breath activated aerosol INHALE 2 PUFFS BY MOUTH 2 TIMES A DAY active Not Available Not Available No t Available Vitals Date Recorded Body height Body weight Provider Name and Address Organization Details Last Updated DateTime 07/20/2024 147.32 cm 38644.15 g Glenda Chavarria [place] - [facility] 07/20/2024 10:47:00 Date Recorded Body height Body mass index (BMI) Body weight Provider Name and Address Organization Details Last Updated DateTime 04/04/2024 147.32 cm 28.6 kg/m2 91216.15 g Beni Kee [place] - [facility] 04/04/2024 14:32:14 Social History None recorded. Functional Status None recorded. Mental Status None recorded. Family History Nothing Reported. Medical History Condition Response Allergies/Hayfever N Heart Problems N Anxiety Y Tonsil Infections N Emphysema N Migraines Y Thyroid Problems N COPD N Depression N Developmental Delay N Glaucoma N Nasal or Sinus Problems N Anemia N Immune System Disorder N Anesthesia Complications N Heart Attack (OR) N Other Skin Condition N Diabetes N Rhinitis N Bleeding Disorder N Food Allergy N Hearing Loss N Arthritis N Hyperlipidemia N Cancer N Stroke Y Dementia N Nasal polyps N Asthma N Sleep Disorder N High Cholesterol Y GERD/Reflux N Liver Disease N Headaches N Fibromyalgia N Hypertension N Speech Delay N Kidney Disease N Gynecological HistoryNo gynecological history recorded. Obstetrics History GPAL:G 0 P 0 0 0 0 Past Encounters Encounter ID Performer Location Encounter Start Date Encounter Closed Date Diagnosis/Indication Diagnosis SNOMED-CT Code Diagnosis ICD10 Code Diagnosis IMO Codes Diagnosis Note [id number] LINDA POLANCO MD [facility] [address] [address] 04/04/2024 14:16:12 04/04/2024 15:04:58 Chronic hoarseness 1671203174 105 R49.0 Gastroesop hageal reflux disease without esophagitis 151306592 K21.9 Deviated nasal septum 12 0527631 J34.2 Nasal congestion 5151682 0 R09.81 [id number] LINDA POLANCO MD [facility] [address] [address] 07/20/2024 10:14:32 07/20/2024 11:06:34 Chronic hoarseness 7347818717 105 R49.0 Chronic rhinitis 3187807 6 J31.0 Deviated nasal septum 12 9977164 J34.2 Health Concerns Section Related Observation LastModified by Organization Detai ls LastModified Time None Recorded Concern Status LastModified by Organization Details LastModified Time None Recorded Advance Directives Directive None Recorded Payers Insurance Date Sequence Insurance Name Policy Number Policy Solomon Covered Member ID Solomon Member ID Guarantor Name 11/20/2024 1 [employer] [facility] ([place]) [id number] Cristela Lewis [id number] Cristela Lewis Notes Date Note Type Note Provider Name and Address Organization Details Recorded Time 04/04/2024 text/html Hx of shortness of breath, low oxygen at night, recent eval for abnormal lung imaging, she feels fatigued and has low energy. She saw Dr. Pj ribeiro over a year ago for bilateral maxillary retention cysts which were noted on MRI scan for headache. She did not feel that those were the cause of any breathing difficulty. Patient notes when she lies down on her right side the left side is obstructed. She is concerned that that is causing her to be fatigued and not have enough oxygen. She also notes epigastric discomfort and possible GERD. had COVID in Apr 2023, pneumonia in May 2023 and Novemberhronic dialy hoarseness and SOB with sitting or even mild movements. At other times she feels breathing is fineShe gets minimal improvement with Nasacort LINDA ABRAMS MD [address] [facility],[address], [address], [facility] - [facility] 04/04/2024 15:01:15 07/20/2024 text/html Patient notes that her nasal and throat symptoms have been improved with ipratropium bromide. She was unable to tolerate the reflux Gourmet. She has been getting epigastric discomfort and reflux. She is scheduled for an EGD August 31. Voice has been fluctuating LINDA ABRAMS MD 100 [facility],[address], [address], [facility] 07/20/2024 11:05:29 OBGyn Episode No OBEpisode recorded.
--- OUTSIDE RECORDS SUMMARY | 2025-02-18 09:42 | XMS_ITS | Clinical Summary ---
Author Organization [facility] Address [address] [place] [address] Care Team Providers Care Clinic Coordinator Name Role Phone Erika Bustillos Primary Care Provider [phone] Allergies Active Allergy Reactions Criticality Noted Date Comments Acetazolamide Rash 06/15/2024 Caffeine Tachycardia 06/16/2023 Codeine Other (see comments),Tachycardia 02/22/2014 hyperactivity Latex Photosensitivity rash,Rash 03/09/2021 Oxycodone Other (see comments) 09/07/2023 Chest tightness Sulfa (Sulfonamide Antibiotics) Rash 02/22/2014 Medications albuterol-budes onide 90-80 mcg/actuation HFA aerosol inhaler 4 Active aspirin 81 mg EC tablet Take 81 mg by mouth once a day. Active atorvastatin (LIPITOR) 10 mg tablet SMARTSI Tablet(s) By Mouth Every Night Active Qvar RediHaler 80 mcg/actuation HFA aerosol breath activated Inhale 2 puffs by mouth 2 times daily. 4 05/18/20 25 Active calcium carbonate-vitam in D3 600 mg-10 mcg (400 unit) capsule Take by mouth. Activ e Geraldo Mckeon [facility] USE YOUR ALBUTEROL INHALER. 4 Active ipratropium (ATROVENT) 0.03% nasal spray USE 2 SPRAYS IN EACH NOSTRIL 3 TIMES A DAY 4 Active magnesium 250 mg tablet Take by mouth. Activ e sertraline (ZOLOFT) 25 mg tablet Take 1 Tablet by mouth daily. - Oral Active coenzyme Q10 100 mg capsule Take by mouth. Active verapamiL (CALAN) 40 mg tablet Take 1 Tablet by mouth 2 Times Daily. - Oral 4 Active sertraline (ZOLOFT) 50 mg tablet Take 50 mg by mouth once a day. Active Active Problems Problem Noted Date Diagnosed Date Family history of malignant neoplasm of breast 0 06/15/2024 Assessment & Plan (06/15/2024 7:55 AM EST): Her sister was previously diagnosed with breast cancer. Her sister tested negative for BRCA mutation. Genetic consultation offered to the patient. 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 Repeat Pap and HPV yearly. Osteoarthritis of hip 06/15/2024 Osteopenia of multiple sites 06/15/2024 Assessment & Plan (06/15/2024 7:37 AM EST): Ensure adequate vitamin D and calcium intake as well as weightbearing exercise. Repeat DEXA study ordered. Overweight for height 06/15/2024 Heterogeneously dense tissue of both breasts on mammography 06/15/2024 Assessment & Plan (06/15/2024 7:55 AM EST): Heterogeneously dense breast noted on mammogram. Intermediate risk of breast cancer. ABUS ordered. Mass of right breast 06/15/2024 Assessment & Plan (06/15/2024 7:54 AM EST): Small palpable movable mass at 10:00 in the right breast. Recent imaging revealed no abnormality in this area. Referral placed to general surgery for further evaluation. Migraine headache 02/21/2024 Palpitations 12/30/2022 Overview (06/15/2024): December 2022: Normal Holter monitor Hyperlipidemia 01/27/2016 Overview (06/15/2024): Total cholesterol 204, LDL cholesterol 119, 09/03/2015 Vitamin D deficiency 05/31/2014 Hematuria 05/22/2013 Resolved Problems Problem Noted Date Diagnosed Date Resolved Date TIA (transient ischemic attack) 02/21/2024 06/15/2024 Encounters Date Type Department Care Team Description 01/29/2025 Orders Only [facility] [address] [facility] NOTE KEEPER Department [address] [facility] [address] [place] [address] Shilo Boyd MD Mammographic heterogeneous density, bilateral breasts 01/28/2025 Telephone [facility] [address] [facility] NOTE KEEPER Department [address] [facility] [address] [place] [address] Shilo Boyd MD 01/10/2025 Orders Only [facility] [address] [place] [address] Shilo Boyd MD Mammographic heterogeneous density, bilateral breasts from Last 3 Months Immunizations Immunization Administration Dates Next Due INFLUENZA, SPLIT VIRUS, TRIVALENT, PF 03/09/2017 ,02/12/2016,02/25/2015 Influenza Whole 02/27/2015 Influenza, Injectable, Quadr ivalent, Preservative Free 04/14/2018 Tetanus Toxoid, Reduced Diph theria Toxoid, and Acellular Pertussis Vaccine, Adsorbed 02/04/2023 Family History Medical History Relation Name Comments Other Brother Family history of Prostate cancer Other Father Family History of myocardial infarction Other Mother Family History of osteoporosis Breast cancer Sister Other Sister Family History of blood dyscrasia Cervical cancer Neg Hx Colon cancer Neg Hx Endometrial cancer Neg Hx Ovarian cancer Neg Hx Uterine cancer Neg Hx Relation Name Status Comments Brother Father Mother Sister Social History Tobacco Use Types Packs/Day Years Used Date Smoking Tobacco: Never Smokeless Tobacco: Never Tobacco Cessation:Counseling Given: Not Answered Comments:: Alcohol Use Standard Drinks/Week Comments Yes 0 (1 standard drink = 0.6 oz pur e alcohol) social Comments Unknown Sex and Gender Information Value Date Recorded Sex Assigned at Female 06/15/2024 7:23 AM EST Legal Sex Female 12:11 AM EDT Gender Identity Not on file Sexual Orientation Not on file Last Filed Vital Signs Vital Sign Reading Time Taken Comments Blood Pressure 112/70 07/17/2024 3:47 PM EST Pulse 74 07/17/2024 3:47 PM EST Temperature 36.6 C (97.8 F) 07/17/2024 3:47 PM EST Respiratory Rate 16 07/17/2024 3:47 PM EST Oxygen Saturation 98% 07/17/2024 3:47 PM EST Inhaled Oxygen Concentration - - Weight 62.6 kg (138 lb) 07/17/2024 3:47 PM EST Height 148.6 cm (4' 10.5 ) 07/17/2024 3:47 PM ES T Body Mass Index 28.35 07/17/2024 3:47 PM EST Plan of Treatment Upcoming Encounters Date Type Department Care Team (Late st Contact Info) Description 06/28/2025 4:00 PM EST Office Visit [address] NOTE KEEPER Department [address] [place] [address] [address] [place] [address] Vanessa Mckay MD [address] [place] [address] Health Maintenance Due Date Last Done Comments Cologuard 1960 Colon Cancer Screening 1960 Colonoscopy 1960 FOBT / Fit Test 1960 HIV Screening 1960 Hepatitis C Screening 1960 Sigmoidoscopy 1960 Pneumococcal Vaccine: 50+ Years (1 of 2 - PCV) 1979 Diabetes Screening 1995 Zoster Vaccines (1 of 2) 2010 RSV Vaccine (60+ years old and patients) (1 - Risk 60-74 years 1-dose series) 2020 Alcohol/Substance Use Screening 05/23/2024 Depression Screening and Follow-Up 05/23/2024 Social Drivers of Health Annual Screening 05/23/2024 COVID-19 Vaccine ( season) 2025 09/13/2020, 08/23/2020 Influenza Vaccine (#1) 2025 8, 03/09/2017, 02/12/2016, Additional history exists Cervical Cancer Screening 06/15/2025 HPV and Pap Smear 06/15/2025 06/15/2024, 11/14/2008 Mammogram 04/23/2026 04/23/2024, 1206/2023, 04/23/2024, Additional history exists Pap Smear 06/15/2027 06/15/2024, 10/22, 03/07/2008, Additional history exists DTaP,Tdap,and Td Vaccines (2 - Td or Tdap) 02/04/2033 02/04/2023 Hepatitis B Vaccines Aged Out No long er eligible based on patient's age to complete this topic Procedures * Due to [place] [employer] law, this organization might not be sharing negative HIV tests. 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 * Thinprep Pap with HPV Screen and Reflex HPV 16, 18/45 - [place] only (06/15/2024 7:55 AM EST) Pap Result Normal 06/26/2024 12:00 AM EST [facility] Comment: PAP TEST INTERPRETATION Negative for intraepithelial lesion/malignancy. Specimen Adequacy: Satisfactory for evaluation. Endocervical/transformation zone absent (atrophic smear). Education Analyst: HELIO Medina (ASCP) Electronic Signature: 06/26/2024 11:14 Ancillary Testing Test Name Results HPV High NEGATIVE Risk HPV NEGATIVE Genotyping 16 HPV NEGATIVE Genotyping 18 Clinical History NO LMP GIVEN Source: Cervical/Endocervical Status: Routine/Screening Comments: Z91.89 Prior Cytology/Molecular History +------+------ 2024 +------+------+------+------ Thinprep PAP NILM NILM w/court advocate +------+------+------+------ HPV High NEGATI NEGATI Risk VE VE +------+------+------+------ HPV NEGATI NEGATI Genotyping VE VE 16 +------+------+------+------ HPV NEGATI NEGATI Genotyping VE VE 18 Technical services and automated prescreening by the ThinPrep Imaging System performed at [facility] ([facility], [address] [place] [id number]; ; [id number]; CLIA #[id number]) All professional services performed by [facility] ([address] [place] [address]; ; CLIA #[id number]) Testing for HPV was performed at [facility] (CLIA# [id number], [id number]) using the Mary MARKEL [id number] system. The presence of HPV in the female genital tract is associated with a number of diseases, including cervical carcinoma. The HPV DNA high risk pool tests for HPV 31, 33, 35, 39, 45, 51, 52, 56, 58, 59, 66 and 68. Testing for HPV 16 and 18 genotypes has also been performed. A positive result indicates detection of nucleic acid sequences from one or more subtypes, whereas negative result indicates such sequences were not detected. Results should be correlated with other clinical and cytologic findings. Gynecological cytology is a screening procedure for cervical cancer. Both false positive and false negative results may occur. Reliability of the procedure can be significantly improved by combining the results of satisfactory cytology samples obtained on a regular and repetitive basis with all relevant clinical information. Brushing Cervix uteri structure / Unknown Non-Blood Collection / Unknown 06/15/2024 7:55 AM EST 06/18/2024 8:14 AM EST us Shilo Boyd MD LAB PATH/CYTO ([email or web address]) Final Result [facility] [address] [place] [address], from Last 3 Months or Most Recently Relevant to Health Maintenance Insurance [employer] Care Teams Clinic Coordinator Relationship Specialty Start Date End Date Erika Bustillos [address] [place] [place] [id number] PCP - General 06/15/24
== END 2025-02-18 09:40 | disposition home or self-care (01) ==
LOC: HO.HSM 09:06
PROVIDERS: PCP Internal Medicine; Visit Provider Registered Nurse
DX: G43.109 Migraine with aura, not intractable, without status migrainosus (principal); F41.9 Anxiety disorder, unspecified; Z86.73 Personal history of transient ischemic attack (TIA), and cerebral infarction without residual deficits
CPT/HCPCS: 99214